=== PATIENT | male | born 1960 | race Caucasian/White ===

== ENCOUNTER 2017-02-12 12:53 | Emergency (ER) | payer OTHER ==
[~2017-02-12] VITALS: Ht 175.3 cm; Wt 90.3 kg
[~2017-02-12 12:53] MED LIST: CIPR500T4 PO; PHEN-329 PO
[2017-02-12 13:00] VITALS: BP 122/81
--- NOTE | 2017-02-12 13:14 | NUR ---
Patient ambulated to bed 7. RN evaluating patient at bedside.
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
[2017-02-12] MEDS ORDERED: HYDROmorphone PFS 2 MG/ML SYR IM ONE ×2 (13:20→14:15)
[2017-02-12] MEDS ORDERED: ONDANSETRON 4 MG/2 ML VIAL IM ONE (13:20)
[2017-02-12 13:46] LABS: APPEARANCE,URINE CLEAR (CLEAR); BILIRUBIN,URINE NEGATIVE (NEGATIVE); BLOOD, URINE NEGATIVE (NEGATIVE); COLOR,URINE YELLOW (YELLOW); LEUKOCYTE ESTERASE ,URINE NEGATIVE (NEGATIVE); NITRITE, URINE NEGATIVE (NEGATIVE); PROTEIN,URINE NEGATIVE (NEGATIVE); UGLUCOSE NEGATIVE (NEGATIVE); UROBILINOGEN,URINE 0.2 EU/dL (0.2 - 1)
--- NOTE | 2017-02-12 14:42 | NUR ---
PT RESTING ON BED;NO ACUTE DISTRESS NOTED;WILL CONTINUE TO MONITOR PT.
--- NOTE | 2017-02-12 15:08 | NUR ---
Patient taken to XRAY via wheelchair by tech.
--- NOTE | 2017-02-12 15:47 | NUR ---
Patient discharged with v/s stable. Written and verbal after care instructions given and explained. Patient alert, oriented and verbalized understanding of instructions. Ambulatory with steady gait. All questions addressed prior to discharge. ID band removed. Patient advised to follow up with PMD. Rx of NORCO AND FLEXERIL given. Patient educated on indication of medication including possible reaction and side effects. Opportunity to ask questions provided and answered.
[2017-02-12 15:48] VITALS: BP 134/78
== END 2017-02-12 15:47 | disposition home or self-care (01) ==
LOC: MED 12:53
DX: M54.40 Lumbago with sciatica, unspecified side (principal); G89.29 Other chronic pain
CPT/HCPCS: 72100; 81003; 96372; 99285; J1170; J2405